=== PATIENT | female | born 1985 | race Caucasian/White ===

== ENCOUNTER 2019-10-09 11:55 | Outpatient (CLI) | payer SELFPAY ==
[2019-10-09 12:13] VITALS: BP 126/87; PULSE 102
[2019-10-09 12:30] VITALS: BP 124/86; PULSE 91
[2019-10-09 12:32] LABS: Basophils Percent Auto 0.2 % (0.2-1.2); Eosinophils Absolute Auto 0.1 K/mm3 (0-0.3); Eosinophils Percent Auto 1.1 % (0-4.4); Hematocrit 30.4 % (37.0-47.0); Hemoglobin 9.5 g/dL (12.0-15.0); Immature Granulocyte Absolute 0.22 K/mm3 (0.00-0.031); Immature Granulocyte Percent A 2.2 % (0-0.5); Lymphocytes Absolute Auto 2.12 K/mm3 (0.9-3.2); Lymphocytes Percent Auto 21.6 % (18.3-44.2); Mean Corpuscular HGB Conc 31.3 g/dl (32-36); Mean Corpuscular Hemoglobin 25.5 pg (26-34); Mean Corpuscular Volume 81.7 fl (80-100); Mean Platelet Volume 9.8 fl (7.4-10.4); Monocytes Absolute Auto 0.8 K/mm3 (0.1-0.6); Monocytes Percent Auto 7.8 % (2.6-8.5); Neutrophils Absolute Auto 6.6 K/mm3 (1.3-6.7); Neutrophils Percent Auto 67.1 % (45.5-73.1); Nucleated Red Blood Cells Perc 0.3 % (0.0-0.2); Platelet Count Result 206 k/mm3 (150-375); Red Blood Count 3.72 M/mm3 (4.2-5.4); Red Cell Distribution Width 15.9 % (11.5-14.5); White Blood Count 9.8 K/mm3 (4.5-10.0)
[2019-10-09 12:41] LABS: Alanine Aminotransferase 14 U/L (4-35); Albumin Level 3.6 g/dL (3.5-5.1); Alkaline Phosphatase 209 U/L (38-126); Aspartate Amino Transferase 30 U/L (14-36); Bilirubin,Total 0.2 mg/dL (0.2-1.3); Blood Urea Nitrogen 7 mg/dL (7-17); Calcium 8.8 mg/dL (8.4-10.2); Carbon Dioxide 22 mmol/L (22-30); Chloride 106 mmol/L (98-107); Estimated Glomerular Filt Rate > 60; Glucose 73 mg/dL (65-105); Potassium 3.9 mmol/L (3.4-5.0); Sodium 134 mmol/L (137-145)
[2019-10-09 12:45] VITALS: BP 128/83; PULSE 90
[2019-10-09 12:59] LABS: Add Urine Microscopic? YES; Appearance Urine Clear (Clear); Bacteria Urine Trace /hpf; Bilirubin Urine Negative (Negative); Blood Urine Negative (Negative); Color Urine Colorless (Yellow); Glucose Urine UA Negative (Negative); Ketones Urine Negative (Negative); Leukocyte Esterase Ur Trace LEU/UL (NEGATIVE); Mucus Urine Rare /lpf; Nitrate Urine Negative (Negative); Protein Urine Negative (Negative); RBC Urine 0-2 /hpf (0-2); Specific Grav Ur 1.006 (1.001-1.035); Squamous Epithelial Cell Urine Few /hpf (Few); Urobilinogen Urine Negative mg/dL (<2.0); WBC Urine 0-3 /hpf (0-3)
[2019-10-09 13:00] VITALS: BP 128/87; PULSE 92
[2019-10-09 13:15] VITALS: BP 125/84; PULSE 87
[2019-10-09 13:48] VITALS: BP 125/84; PULSE 85
[2019-10-09 14:20] LABS: Total Protein Urine Random 13 mg/dL
== END 2019-10-09 14:00 | disposition home or self-care (01) ==
LOC: ANHOBOP 12:00 → ANHOBPP 12:00
PROVIDERS: Visit Provider Obstetrics & Gynecology
DX: O13.9 Gestational [pregnancy-induced] hypertension without significant proteinuria, unspecified trimester (principal); Z3A.00 Weeks of gestation of pregnancy not specified
CPT/HCPCS: 36415; 59025; 80053; 81001; 82570; 84156; 84550; 85025; 87086; 99199

== ENCOUNTER 2019-10-10 07:02 | Inpatient (IN) | payer SELFPAY ==
[2019-10-10] VITALS (50 sets, daily range): BP systolic 90–142; BP diastolic 58–91; PULSE 79–113; RESP 16; TEMP 36.8–37.2; O2SAT 98–100; BMI 26.6
--- NOTE | 2019-10-10 07:36 | LDADM ---
This patient, Kayla Zamora, was admitted to Labor/Delivery/Recovery 107 on 10/10/19 at 07:02. Plans for labor, pain management and were discussed with patient. Patient/family oriented to hospital policies and general routines including ID bracelet, bed and alarms, visiting hours, pain management, procedures, bathroom and other care routines, personal items, smoking policy, room service/diet and guest tray routines, infant security routines, and visiting hours. Patient/Family are encouraged to report perceived risks to care and to ask questions if they do not understand what they are told or what they should do. See OBIX for further documentation.
[2019-10-10 07:50] LABS: Basophils Percent Auto 0.2 % (0.2-1.2); Eosinophils Absolute Auto 0.2 K/mm3 (0-0.3); Eosinophils Percent Auto 1.7 % (0-4.4); Hematocrit 29.6 % (37.0-47.0); Hemoglobin 9.3 g/dL (12.0-15.0); Lymphocytes Absolute Auto 2.53 K/mm3 (0.9-3.2); Lymphocytes Percent Auto 25.3 % (18.3-44.2); Mean Corpuscular HGB Conc 31.4 g/dl (32-36); Mean Corpuscular Hemoglobin 25.8 pg (26-34); Monocytes Absolute Auto 0.7 K/mm3 (0.1-0.6); Monocytes Percent Auto 7.1 % (2.6-8.5); Neutrophils Absolute Auto 6.4 K/mm3 (1.3-6.7); Neutrophils Percent Auto 63.7 % (45.5-73.1); Nucleated Red Blood Cells Perc 0.3 % (0.0-0.2); Platelet Count Result 206 k/mm3 (150-375); Red Blood Count 3.61 M/mm3 (4.2-5.4); Red Cell Distribution Width 16.4 % (11.5-14.5)
[2019-10-10] MEDS: OXYTOCIN 30 UNITS/NS 500 ML 30 UNITS/500 ML BAG IV CONT (07:55)
[2019-10-10] MEDS: LACTATED RINGERS 1,000 ML 125 ML IV CONT (07:55)
[2019-10-10 09:07] LABS: HIV 1/2 Ab P24 Ag Result Negative (Negative)
--- NOTE | 2019-10-10 11:56 | WPDANESEPPF ---
Anes - Initial Pre Proc Eval Date/Time: 10/10/19 11:56 Surgeon: Bryce Snowden MD Pre Op Diagnosis: Induction of Labor Patient Data Age: 34 Gender: F Height: 5 ft 2 in Weight: 66 kg Last Vital Signs Temp 37.0 C 10/10/19 10:00 Pulse 93 10/10/19 11:52 BP 126/83 10/10/19 11:52 Pulse Ox 100 10/10/19 11:55 Allergies Allergy/AdvReac Type Severity Reaction Status Date / Time No Known Allergies Allergy Verified 10/09/19 11:24 Home Medications Medication Instructions Recorded Confirmed Type albuterol sulfate 90 mcg/actuation 2 inhalation INHALATION PRN PRN 08/25/19 10/09/19 History aerosol inhaler fluticasone propionate 115 1 puff INHALATION BID 08/25/19 10/09/19 History mcg-salmeterol 21 mcg/actuation HFA inhaler PNV cmb#95-ferrous fumarate-FA 1 tablet PO DAILY 09/17/19 10/09/19 History [] cetirizine [Zyrtec] 10 mg PO DAILY 09/17/19 10/09/19 History cholecalciferol (vitamin D3) 25 25 mcg PO DAILY 10/09/19 10/09/19 History mcg (1,000 unit) tablet Laboratory Tests 10/10/19 10/10/19 10/10/19 07:42 07:42 07:43 WBC 10.0 K/mm3 K/mm3 (4.5-10.0) RBC 3.61 M/mm3 L M/mm3 (4.2-5.4) Hgb 9.3 g/dL L g/dL (12.0-15.0) Hct 29.6 % L % (37.0-47.0) MCV 82.0 fl fl (80-100) MCH 25.8 pg L pg (26-34) MCHC 31.4 g/dl L g/dl (32-36) RDW 16.4 % H % (11.5-14.5) Plt Count 206 k/mm3 k/mm3 (150-375) MPV 10.0 fl fl (7.4-10.4) Immature Gran % (Auto) 2.0 % H % (0-0.5) Neut % (Auto) 63.7 % % (45.5-73.1) Lymph % (Auto) 25.3 % % (18.3-44.2) [place] % (Auto) 7.1 % % (2.6-8.5) Eos % (Auto) 1.7 % % (0-4.4) Baso % (Auto) 0.2 % % (0.2-1.2) Lymph # (Auto) 2.53 K/mm3 K/mm3 (0.9-3.2) [place] # (Auto) 0.7 K/mm3 H K/mm3 (0.1-0.6) Eos # (Auto) 0.2 K/mm3 K/mm3 (0-0.3) Baso # (Auto) 0.0 K/mm3 K/mm3 (0.0-0.1) Abs Immat Gran (auto) 0.20 K/mm3 H K/mm3 (0.00-0.031) Absolute Neuts (auto) 6.4 K/mm3 K/mm3 (1.3-6.7) Absolute Nucleated RBC 0.0 K/mm3 K/mm3 (0.0-0.012) Nucleated RBC % 0.3 % H % (0.0-0.2) RPR Pending HIV 1&2 Ab/P24 Ag 4thGn Negative (Negative) Blood Type Antibody Screen 10/10/19 07:43 WBC RBC Hgb Hct MCV MCH MCHC RDW Plt Count MPV Immature Gran % (Auto) Neut % (Auto) Lymph % (Auto) [place] % (Auto) Eos % (Auto) Baso % (Auto) Lymph # (Auto) [place] # (Auto) Eos # (Auto) Baso # (Auto) Abs Immat Gran (auto) Absolute Neuts (auto) Absolute Nucleated RBC Nucleated RBC % RPR HIV 1&2 Ab/P24 Ag 4thGn Blood Type O Positive Antibody Screen Negative Patient hx anesthesia problems: none Family hx anesthesia problems: none PMFSH Past Medical History Medical History Asthma during Migraines Family History Family History Mother Family history of malignant neoplasm of breast in first degree relative Social History Social History Smoking status: Never smoker Second hand tobacco smoke exposure: No Alcohol intake: never Substance use: never Gender identity (if verbalized by the patient): Female Spiritual care concerns: No Anes - Eval Final PreProcedure Day of Procedure 10/10/19 11:56 Patient weight: overweight Heart: regular rate and rhythm Lungs: clear to auscultation Neurological: alert and oriented ASA classification: II Emergent: no Anesthetic plan: proceed Anesthesia type and monitoring: regional epi
--- NOTE | 2019-10-10 12:55 | PM.IMHP ---
H&P: HPI History of Present Illness Chief complaint: Induction of Labor Narrative: Kayla Zamora is a 34 year old female at 39 weeks by EDC of 10/16/19 by first trimester ultrasound at 8w4d which was 6 days off from LMP of 01/12/19. course significant for one episode of elevated blood pressure on 10/09/19 at office visit. She has a history of mild asthma. Started on a steroid inhaler. She had normal labs and normal blood pressures on Labor and Delivery. She denies any headache, scotomata or RUQ pain. She has had three uncomplicated vaginal deliveries. Labs: Pap nl 03/15, GC/CHL neg, HepBsag-neg,RPR-NR, Rub-IM, O+,HIV neg, h/h1, Hemoglobin electrophoresis-nl, glucola-90, h/h1, third trimester h/h9.01/22, HIV neg, GBS-neg. Review of Systems Review of Systems: All systems reviewed & are unremarkable except as noted in HPI and below Constitutional: Constitutional: Reports no additional constitutional complaints and Denies headache(s) Eyes: Eyes: Denies spots in vision ENT: Reports system reviewed and no additional complaints, except as documented and Denies headache(s) Cardiovascular: Cardiovascular: Denies chest pain and Denies dyspnea Respiratory: Respiratory: Denies dyspnea Gastrointestinal: Gastrointestinal: Reports no additional gastrointestinal complaints Genitourinary: Genitourinary: Reports amenorrhea Musculoskeletal: Musculoskeletal: Reports no additional musculoskeletal complaints Integumentary/Breasts: Skin/Breast: Denies breast mass and Denies rash Neurologic: Denies headache(s) Psychiatric: Psychiatric: Reports no additional psychiatric complaints [facility] Past Medical History Medical History (Updated 10/10/19 @ 13:45 by Bryce Snowden MD) Asthma during Elective induction of labor planned Migraines Family History Family History Mother Family history of malignant neoplasm of breast in first degree relative Social History Social History Smoking status: Never smoker Second hand tobacco smoke exposure: No Alcohol intake: never Substance use: never Gender identity (if verbalized by the patient): Female Spiritual care concerns: No Meds Home Medications and Allergies Home Medications Medication Instructions Recorded Confirmed Type albuterol sulfate 90 mcg/actuation 2 inhalation INHALATION PRN PRN 08/25/19 10/09/19 History aerosol inhaler fluticasone propionate 115 1 puff INHALATION BID 08/25/19 10/09/19 History mcg-salmeterol 21 mcg/actuation HFA inhaler PNV cmb#95-ferrous fumarate-FA 1 tablet PO DAILY 09/17/19 10/09/19 History [] cetirizine [Zyrtec] 10 mg PO DAILY 09/17/19 10/09/19 History cholecalciferol (vitamin D3) 25 25 mcg PO DAILY 10/09/19 10/09/19 History mcg (1,000 unit) tablet Allergies Allergy/AdvReac Type Severity Reaction Status Date / Time No Known Allergies Allergy Verified 10/09/19 11:24 Vital Signs Vital Signs - 24 hr 10/10/19 07:41 10/10/19 08:01 10/10/19 08:02 Temperature 98.3 F Pulse Rate 109 H 101 H Blood Pressure 117/80 128/81 Pulse Oximetry 10/10/19 08:31 10/10/19 09:01 10/10/19 09:31 Temperature Pulse Rate 100 100 98 Blood Pressure 130/91 H 128/88 129/88 Pulse Oximetry 10/10/19 10:00 10/10/19 10:01 10/10/19 10:31 Temperature 98.6 F Pulse Rate 92 90 Blood Pressure 138/84 132/87 Pulse Oximetry 10/10/19 11:01 10/10/19 11:31 10/10/19 11:45 Temperature Pulse Rate 86 86 Blood Pressure 132/86 125/86 Pulse Oximetry 100 10/10/19 11:46 10/10/19 11:49 10/10/19 11:50 Temperature Pulse Rate 88 94 Blood Pressure 134/83 130/82 Pulse Oximetry 99 10/10/19 11:51 10/10/19 11:52 10/10/19 11:55 Temperature Pulse Rate 92 93 Blood Pressure 122/82 126/83 Pulse Oximetry 100 10/10/19 11:56 10/10/19 12:00 10/10/19 12
--- NOTE | 2019-10-10 15:31 | PM.OBPRVD ---
OB - Delivery Note Procedure Delivery date: 10/10/19 Procedure: Spontaneous vaginal delivery Induction method: per pitocin protocol Delivery augmentation: rupture of membranes (1015) Delivery monitor: external FHT Route of delivery: Episiotomy description: Midline Delivery repair: vicryl (3.0 vicryl) Specimen: Yes (Placenta with accessory lobe) Estimated blood loss (mL): 150 Anesthesia type: Epidural Disposition: floor Complications: Mild shoulder dystocia relieved with modified Laureen and suprapubic pressure. Baby Date of : 10/10/19 Time of : 15:10 Weeks of gestation at delivery: 39 Infant gender: Male Weight (pounds): 9 Weight (ounces): 2 presentation: vertex position: Right Occiput Anterior Placenta delivery description: Spontaneous and Abnormal Configuration (Accessory lobe) cord vessel description: 3 Vessels score one minute: 8 score five minutes: 9 Narrative: Patient admitted for medical induction of labor. Cervix on admission was 3/70/-2. Pitocin was started. She had AROM clear at 1015. She progressed into active labor. She dilated to complete and delivered a male infant at 1510. Episiotomy performed due to large head and no progress with pushing. She then delivered a male over the midline episiotomy. There was a mild shoulder dystocia relieved with modified Laureen and suprapubic pressure, last 10 seconds. Terminal meconium noted. Infant vigorously crying upon delivery and placed on maternal abdomen. After cord noted to be apulsatile the cord was doubly clamped and cut. Placenta delivered spontaneous and intact and noted to have an intact accessory lobe. Episiotomy repaired with 3.0 vicryl. EBL 150cc. Patient tolerated procedure well.
[2019-10-10] MEDS: OXYTOCIN 30 UNITS/NS 500 ML 30 UNITS/500 ML BAG 125 UNITS IV CONT (15:52)
--- NOTE | 2019-10-10 17:42 | PC.NURSE ---
Patient transferred to post room #285 per wheelchair from labor and delivery. Support person present. Oriented to unit, room, information board, rooming in, admission packet and security measures. Patient verbalizes understanding.
[2019-10-10] MEDS: IBUPROFEN 600 MG TABLET PO (20:10)
[2019-10-10] MEDS: ACETAMINOPHEN 325 MG TABLET 650 MG PO (20:10)
[2019-10-11] MEDS: ACETAMINOPHEN 325 MG TABLET 650 MG PO (04:12)
[2019-10-11] MEDS: IBUPROFEN 600 MG TABLET PO ×2 (04:12→15:13)
[2019-10-11 06:03] LABS: Hematocrit 28.2 % (37.0-47.0)
--- NOTE | 2019-10-11 09:04 | PM.OBPNVD ---
OB - PN: Subj Subjective Date/time seen: 10/11/19 09:04 Patient doing well. Minimal pain. Well controlled with medication. Minimal lochia. Ambulating without difficulty. Voiding well. OB - PN: Obj Data Labs CBC & Chem 7: 10/11/19 04:14 Labs: Laboratory Results - last 24 hr 10/10/19 10/11/19 07:43 04:14 Hgb 9.0 L Hct 28.2 L HIV 1&2 Ab/P24 Ag 4thGn Negative OB - PN A/P Assessment and Plan (1) Normal spontaneous vaginal delivery: Code(s): O80 - Encounter for full-term uncomplicated delivery Status: Acute Assessment and Plan: doing well continue routine care requesting PPD#1 discharge if infant cleared emergency precautions reviewed f/u in office in 4-6 weeks for visit Time Spent With Patient Time: Total time spent is greater than 50% in coordination of care (as documented) at patient's floor/unit and/or counseling patient: Exam Const: General: comfortable and no acute distress GI: GI Palp: Yes Soft to palpation and No Tenderness to palpation present (GI) Extrem: Right lower extremity: no edema Left lower extremity: no edema Other: no calf tenderness
--- NOTE | 2019-10-11 09:07 | PM.OBDSVD ---
OB - DS: Summary OB Procedures : None OB Procedures Intrapartum: Spontaneous Vag Delivery OB Procedures: : None Time Spent with Patient Time attestation: Total time spent providing and/or coordinating discharge services: DS: Data Data Completed and Pending Labs on day of discharge: Labs from last 24 hours 10/11/19 10/10/19 04:14 07:43 Hgb 9.0 L Hct 28.2 L HIV 1&2 Ab/P24 Ag 4thGn Negative Discharge Plan Discharge Attending physician on discharge: Tiffany Hines Discharging Clinician: Tiffany Hines Anticipated Discharge Date/Time: 10/11/19 09:07 Patient Disposition: Home, Self-Care Activity: as tolerated Diet: regular Discharge Instructions: Call office ([phone]) to schedule a visit in 4-6 weeks. You may take Ibuprofen 600mg every 6 hours as needed for pain. Pain medication may make you constipated. It may be helpful to take an [id number]-vyi-[id number] stool softener, such as Colace and/or Senokot, along with the pain medication to help lessen constipation. Call office or go to ED for pain not controlled with medication, headache, chest pain, shortness of breath, fever, chills, persistent nausea or vomiting, severe abdominal pain, heavy vaginal bleeding >2 pads/hour, foul vaginal discharge or odor, or problems with your breasts. Patient Instructions: Antibiotic Form Stand Alone Forms: General Discharge Information Follow-up/Referrals: Bryce Snowden MD [Physician] - Discharge Medications: Continued albuterol sulfate 90 mcg/actuation HFA aerosol inhaler 2 inhalation INHALATION PRN PRN (Reason: Shortness Of Breath Or Wheezing) RF: 0 Advair HFA 115-21 mcg/actuation HFA aerosol inhaler 1 puff INHALATION BID RF: 0 Zyrtec 10 mg Capsule 10 mg PO DAILY RF: 0 PNV cmb#95-ferrous fumarate-FA [] 28 mg iron- 800 mcg Tablet 1 tablet PO DAILY RF: 0 Discontinued cholecalciferol (vitamin D3) 25 mcg (1,000 unit) tablet 25 mcg PO DAILY RF: 0 Date of admission: 10/10/19 07:02 Primary Care Provider: PHYSICIAN,DIRECTOR HY[employer]OG[employer] STORAGE ENGINEERING Admitting Provider: Bryce Snowden Attending physician on admission: Bryce Snowden Condition: Stable
--- NOTE | 2019-10-11 09:20 | WPDANLDPN2 ---
Anes-Prog Note L&D Date/Time: 10/11/19 09:20 Comfortable throughout: labor and delivery Neuraxial method: epidural Epidural/Spinal procedure site: clean & non-tender Neuro status: Neuro function grossly intact. Cardiovascular status: normal Respiratory status: normal Airway patency: baseline Mental status: baseline Vital Signs: Last Vital Signs Temp 98.9 F 10/10/19 20:00 Pulse 98 10/10/19 20:00 Resp 16 10/10/19 20:00 BP 132/87 10/10/19 20:00 Pulse Ox 98 10/10/19 20:00 I/O: Intake & Output 10/10/19 10/11/19 10/11/19 23:59 07:59 15:59 Output Total 250 Balance -250 Patient feedback: Patient satisfied with anesthetic care.
[2019-10-11 09:38] VITALS: BP 122/82; PULSE 94; RESP 12; TEMP 36.8; O2SAT 94
[2019-10-11] MEDS: MULTIVIT/MIN/PREN/FOL AC/IRON TABLET 1 TAB PO (09:38)
[2019-10-11] MEDS: DOCUSATE SODIUM 100 MG CAPSULE PO (09:38)
[2019-10-11] MEDS: POLYSACCHARIDE IRON COMPLEX 150 MG CAPSULE PO ×2 (09:38→17:01)
[2019-10-11] MEDS: TETANUS,DIPHTHERIA,AC PERTUSSIS ADULT (0.5 ML) BOOSTRIX IM (17:01)
[2019-10-13 07:40] LABS: Rapid Plasma Reagin Non-Reactive (NonReactive)
[2019-10-13 10:20] VITALS: BP 132/77; PULSE 104; RESP 20; TEMP 36.7
== END 2019-10-11 17:40 | disposition home or self-care (01) | DRG 560 ==
LOC: ANHOB2 10-11 09:09 → ANHLDR 10-14 08:12 → ANHOB2 10-14 08:12
PROVIDERS: Admitting Provider Obstetrics & Gynecology; Visit Provider Student in an Organized Health Care Education/Training Program
DX: O77.0 Labor and delivery complicated by meconium in amniotic fluid (principal); O16.4 Unspecified maternal hypertension, complicating childbirth; J45.909 Unspecified asthma, uncomplicated; O99.52 Diseases of the respiratory system complicating childbirth; Z3A.39 39 weeks gestation of pregnancy; Z37.0 Single live birth; O66.0 Obstructed labor due to shoulder dystocia; O43.893 Other placental disorders, third trimester
CPT/HCPCS: 36415; 85014; 85018; 85025; 86592; 86703; 86850; 86900; 86901; 88307; 90715; A9270; G0432; J2590; J2795; J7120

== ENCOUNTER 2021-06-06 15:47 | Outpatient (CLI) | payer SELFPAY ==
[2021-06-06 18:35] LABS: Basophils Percent Auto 0.3 % (0.2-1.2); Eosinophils Absolute Auto 0.1 K/mm3 (0-0.3); Hematocrit 41.2 % (37.0-47.0); Immature Granulocyte Absolute 0.01 K/mm3 (0.00-0.031); Immature Granulocyte Percent A 0.1 % (0-0.5); Lymphocytes Absolute Auto 2.59 K/mm3 (0.9-3.2); Lymphocytes Percent Auto 36.4 % (18.3-44.2); Mean Corpuscular Hemoglobin 30.6 pg (26-34); Mean Platelet Volume 9.4 fl (7.4-10.4); Monocytes Absolute Auto 0.5 K/mm3 (0.1-0.6); Monocytes Percent Auto 6.6 % (2.6-8.5); Neutrophils Percent Auto 55.6 % (45.5-73.1); Platelet Count Result 298 k/mm3 (150-375); Red Blood Count 4.58 M/mm3 (4.2-5.4); Red Cell Distribution Width 12.1 % (11.5-14.5); White Blood Count 7.1 K/mm3 (4.5-10.0)
[2021-06-06 18:45] LABS: Alanine Aminotransferase 21 U/L (4-35); Albumin Level 4.6 g/dL (3.5-5.1); Alkaline Phosphatase 92 U/L (38-126); Anion Gap 12 mmol/L (8-16); Aspartate Amino Transferase 26 U/L (14-36); Bilirubin,Total 0.4 mg/dL (0.2-1.3); Blood Urea Nitrogen 16 mg/dL (7-17); Calcium 9.2 mg/dL (8.4-10.2); Carbon Dioxide 27 mmol/L (22-30); Chloride 100 mmol/L (98-107); Cholesterol 186 mg/dL (0-200); Estimated Glomerular Filt Rate > 60; Glucose 99 mg/dL (65-110); HDL Direct 80 mg/dL; Potassium 4.1 mmol/L (3.4-5.0); Sodium 139 mmol/L (137-145); Triglycerides 73 mg/dL (<150)
[2021-06-06 18:56] LABS: LDL Cholesterol Direct 93 mg/dL
[2021-06-06 19:17] LABS: Vitamin D 25 Hydroxy 29.1 ng/mL
== END 2021-06-06 15:48 | disposition home or self-care (01) ==
LOC: ANHBWCLAB 15:48
PROVIDERS: Visit Provider Obstetrics & Gynecology
DX: Z00.00 Encounter for general adult medical examination without abnormal findings (principal)
CPT/HCPCS: 36415; 80053; 80061; 82306; 84443; 85025

== ENCOUNTER 2023-04-13 20:39 | Emergency (ER) | payer OTHER, SELFPAY ==
--- NOTE | ~2023-04-13 | CT_ITS ---
EXAMINATION: CT abdomen pelvis w con DATE: 04/14/2023 01:13 INDICATION: Abdominal pain. Vomiting. TECHNIQUE: Computed tomography (CT) of the abdomen and pelvis was performed with 100 mL Omnipaque 350 intravenous contrast. Automated exposure control and iterative reconstruction technique were employe d. The dose-length product was 226.76 mGy-cm. COMPARISON: None. FINDINGS: The visualized portions of the lung bases are clear without pneumonia or pleural effusion. The heart size is normal. No pericardial effusion. There is a small sliding hiatal hernia. The liver, gallbladder, spleen, pancreas, adrenal glands, and left kidney are normal. There is a 5 mm cyst in r ight kidney. The appendix measures 8 mm in diameter. There is liquid stool in the colon suggesting di arrhea. There are no pathologically enlarged lymph nodes. There is physiologic fluid in the pelvis. T here is thoracolumbar levoscoliosis. IMPRESSION: 1. Appendiceal diameter of 8 mm, which is indeterminate for appendicitis. 2. Small sliding hiatal hernia. Reviewed, dictated and finalized at location E. 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
[2023-04-13 20:55] VITALS: BP 111/75; PULSE 117; RESP 19; TEMP 36.4; O2SAT 100
[2023-04-13 21:08] LABS: Hematocrit 43.2 % (37.0-47.0); Hemoglobin 14.5 g/dL (12.0-15.0); Mean Corpuscular HGB Conc 33.6 g/dl (32-36); Mean Corpuscular Hemoglobin 29.7 pg (26-34); Mean Corpuscular Volume 88.5 fl (80-100); Platelet Count Result 294 k/mm3 (150-375); Red Blood Count 4.88 M/mm3 (4.2-5.4); Red Cell Distribution Width 12.1 % (11.5-14.5); White Blood Count 12.2 K/mm3 (4.5-10.0)
[2023-04-13 21:22] LABS: Alanine Aminotransferase 24 U/L (6-35); Albumin Level 4.7 g/dL (3.5-5.1); Alkaline Phosphatase 74 U/L (38-126); Anion Gap 11 mmol/L (8-16); Aspartate Amino Transferase 26 U/L (14-36); Bilirubin,Total 0.7 mg/dL (0.2-1.3); Blood Urea Nitrogen 13 mg/dL (7-17); Calcium 9.3 mg/dL (8.4-10.2); Carbon Dioxide 23 mmol/L (22-30); Chloride 100 mmol/L (98-107); Estimated CRCL calculation 85 ml/min; Estimated Glomerular Filt Rate > 60; Glucose 144 mg/dL (65-110); Lipase 61 U/L (23-300); Potassium 3.9 mmol/L (3.4-5.0); Sodium 134 mmol/L (137-145)
[2023-04-13 21:29] LABS: Appearance Urine Cloudy (Clear); Bacteria Urine Rare /hpf; Bilirubin Urine Negative (Negative); Blood Urine 1+ (Negative); Color Urine Yellow (Yellow); Glucose Urine UA Negative (Negative); Ketones Urine 1+ mg/dL (Negative); Leukocyte Esterase Ur Negative LEU/UL (Negative); Nitrate Urine Negative (Negative); Non Pathogenic Casts 0-2; Protein Urine Trace mg/dL (Negative); RBC Urine 21-50 /hpf (0-2); Specific Grav Ur 1.034 (1.001-1.035); Squamous Epithelial Cell Urine Moderate /hpf (Few); Urobilinogen Urine 0.2 mg/dL (<2.0); WBC Urine 0-5 /hpf; pH Urine 6.5 (5.0-9.0)
[2023-04-13 21:36] LABS: Band Neutrophils Percent 1 % (0-6); Lymphocytes Absolute Manual 0.48 K/mm3 (1.1-4.5); Monocytes Absolute Manual 0.36 K/mm3 (0.1-0.90); Monocytes Percent Manual 3 % (3-9); Neutrophils Absolute Manual 11.34 K/mm3 (1.7-7.2); Neutrophils Percent Manual 92 % (46-73); Total Cells Counted 100
[2023-04-13 21:37] LABS: Platelet Estimate Adequate (Adequate); Schistocytes None Seen (NORMAL)
[2023-04-13 21:39] LABS: Atypical Lymphocytes Present; Platelet Clumps Present
[2023-04-13 21:43] LABS: Add Urine Microscopic? YES
[2023-04-13 23:17] VITALS: BP 104/69; PULSE 103; O2SAT 100
--- NOTE | 2023-04-14 00:13 | ED.NAVMDI ---
HPI - Nausea/Vomiting/Diarrhea General Chief complaint: Nausea/Vomiting/Diarrhea <Mary Martinez PA-C - Last Filed: 04/14/23 03:11> Stated complaint: vomiting <Mary Martinez PA-C - Last Filed: 04/14/23 03:11> Time Seen by Provider: 04/14/23 00:06 <HAROLDO Mercado Last Filed: 04/14/23 03:11> History of Present Illness HPI Narrative: 38 y/o F reports with her for evaluation for multiple episodes of vomiting since 0200 yesterday morning. Pt states she has a history of a hernia above her belly button and she is concerned something may be wrong in this area. She denies skin changes overlying hernia. She does report urinary frequency and urgency as well as cough and congestion. Patient is also seen she had 2 episodes of nonbloody diarrhea today. States she has generalized abdominal discomfort that is worse when she vomits. She states that her kids have recently been sick with congestion but denies other sick contacts. She denies dysuria or hematuria, hematemesis, fever, sore throat, flank pain. LMP 1 week ago. <HAROLDO Mercado Last Filed: 04/14/23 03:11> Related Data Home medications: Home Medications Medication Instructions Recorded Confirmed cetirizine 10 mg capsule (Zyrtec) 10 mg PO DAILY PRN 06/06/21 07/17/22 <HAROLDO Mercado Last Filed: 04/14/23 03:11> Allergies/Adverse reactions: Allergies Allergy/AdvReac Type Severity Reaction Status Date / Time No Known Allergies Allergy Verified 07/17/22 12:02 <HAROLDO Mercado Last Filed: 04/14/23 03:11> Review of Systems Review of Systems: CONSTITUTIONAL: Denies fever, chills, or sweats. EYES: Denies visual changes, redness, or discharge. ENT: See HPI CARDIOVASCULAR: Denies chest pain, palpitations, or edema. RESPIRATORY: See HPI GASTROINTESTINAL: See HPI GENITOURINARY: See HPI SKIN: Denies rash or itching. MUSCULOSKELETAL: Denies back pain, joint pain, or myalgia. NEUROLOGIC: Denies headache, numbness, or weakness. PSYCHIATRIC: Denies anxiety or depression. <Mary Martinez PA-C - Last Filed: 04/14/23 03:11> [facility] Past Medical History Medical History: Medical History (Updated 04/14/23 @ 04:57 by Juliocesar Maguire DO) Asthma during Elective induction of labor planned Migraines <Mary Martinez PA-C - Last Filed: 04/14/23 03:11> Family History Family History: Family History Mother Family history of malignant neoplasm of breast in first degree relative <Mary Martinez PA-C - Last Filed: 04/14/23 03:11> Social History Social History: Social History Smoking status: Never smoker Second hand tobacco smoke exposure: No Alcohol intake: never Substance use: never Gender identity (if verbalized by the patient): Female Spiritual care concerns: No <Mary Martinez PA-C - Last Filed: 04/14/23 03:11> Exam Narrative: GENERAL: Well-appearing, well-nourished, and in no acute distress. Patient resting comfortably in exam bed. She is pleasant and conversational. HEAD: Normocephalic, atraumatic. EYES: PERRLA and EOMI. ENT: Nares clear, no rhinorrhea or epistaxis. Mucous membranes moist. NECK: Supple. CHEST: Clear to auscultation. No respiratory distress. HEART: Regular rate and rhythm. No murmur heard. Normal peripheral pulses. ABDOMEN: Normoactive bowel sounds. Abdomen soft with tenderness in the left lower quadrant and epigastrium. No guarding, rebound or rigidity. No CVA tenderness. No overlying skin changes. No palpable hernias. EXTREMITIES: Normal range of motion. No edema. SKIN: Warm, dry, no rash. NEURO: No focal deficits. Alert and oriented x3 <Mary Martinez PA-C - Last Filed: 04/14/23 03:11> Course OCCUPATIONAL HEALTH AND SAFETY MANAGER/PA Physician Supervision For this patient encounter, I reviewed the OCCUPATIONAL HEALTH AND SAFETY MANAGER or
[2023-04-14 00:16] VITALS: BP 116/85
[2023-04-14] MEDS: SODIUM CHLORIDE 0.9% IV 1,000 ML 999 ML IV CONT (00:32)
[2023-04-14] MEDS: ONDANSETRON INJ 4 MG/2 ML VIAL IV PUSH (00:33)
[2023-04-14] MEDS: FAMOTIDINE 20 MG/2 ML VIAL IV PUSH (00:34)
[2023-04-14 00:44] VITALS: BP 116/85; PULSE 90; RESP 14; O2SAT 100
[2023-04-14 01:01] LABS: Lactic Acid Reflex 1.5 mmol/L (0.7-2.0)
[2023-04-14 01:24] LABS: Influenza A QL RT-PCR Negative (Negative); Influenza B QL RT-PCR Negative (Negative); SARS-CoV-2 RNA PCR Negative (Negative)
[2023-04-14] MEDS: ACETAMINOPHEN 500 MG TABLET 1000 MG PO (04:54)
[2023-04-14] MEDS: ONDANSETRON HCL ODT 4 MG TABLET PO (05:06)
== END 2023-04-14 05:17 | disposition home or self-care (01) ==
PROVIDERS: Physician Assistant; Emergency Provider Student in an Organized Health Care Education/Training Program
DX: K52.9 Noninfective gastroenteritis and colitis, unspecified (principal); R10.84 Generalized abdominal pain; Z20.822 Contact with and (suspected) exposure to COVID-19; K44.9 Diaphragmatic hernia without obstruction or gangrene
CPT/HCPCS: 36415; 74177; 80053; 81001; 81025; 83605; 83690; 85025; 87636; 96361; 96374; 96375; 99284; A9270; J2405; J7030; Q9967

== ENCOUNTER 2023-04-30 09:32 | Outpatient (CLI) | payer OTHER, SELFPAY ==
[2023-04-30 22:36] LABS: Hemoglobin A1C 4.9 % (<5.7)
== END 2023-04-30 09:33 | disposition home or self-care (01) ==
LOC: ANHBWCLAB 09:35
PROVIDERS: PCP Family Medicine; Visit Provider Family Medicine
DX: R73.09 Other abnormal glucose (principal); R00.9 Unspecified abnormalities of heart beat
CPT/HCPCS: 36415; 83036; 84443